=== PATIENT | female | born 1960 | race Two or more races ===

== ENCOUNTER 2016-04-23 08:29 | Emergency (ER) | payer OTHER ==
[2016-04-23 08:35] VITALS: BP 153/72; PULSE 68; TEMP 97.6; BMI 34.2
[2016-04-23] MEDS ORDERED: KETOROLAC TROMETHAMINE 60 MG/2 ML VIAL IM ONE (09:21)
[2016-04-23] MEDS ORDERED: MAG HYDROX/AL HYDROX/SIMETH 355 ML ORAL.SUSP PO ONE (09:21)
[2016-04-23] MEDS ORDERED: KETOROLAC TROMETHAMINE 60 MG/2 ML VIAL ONE (09:22)
[2016-04-23] MEDS ORDERED: MAG HYDROX/AL HYDROX/SIMETH 30 ML UNIT-DOSE CUP ONE (09:24)
--- NOTE | 2016-04-23 09:27 | PDOC ---
History of Present Illness - General Chief Complaint: Back Pain Stated Complaint: PAIN/ BACK, Time Seen by Provider: 04/23/16 09:01 History Source: Patient Exam Limitations: No Limitations - History of Present Illness Initial Comments: 04/23/16 09:24 CHIEF COMPLAINT:: Upper back pain, and burning sensation mid upper stomach radiates up HISTORY OF PRESENT ILLNESS:-Pt. is a 55 y/o year-old female with a history of hypertension and hyperlipidemia here today complaining of bilateral muscular pain thoracic paraspinal muscles for a few days that is worse with movement currently as a 6 out of 10 aching in nature. Patient also reports that she has a burning sensation mid epigastric area up towards towards her throat with a lot of belching. Patient reports that she does eat and lie down. Denies any nausea or vomiting. 04/23/16 11:58 Timing/Duration: intermittent Severity: moderate Associated Symptoms: reports: other (thoracic back pain b/l, gastric reflux,) Past History - Past Medical History Allergies/Adverse Reactions: Allergies Allergy/AdvReac Type Severity Reaction Status Date / Time Penicillins Allergy Intermediate Hives Verified 04/23/16 08:31 Home Medications: Ambulatory Orders Lisinopril 10 mg PO DAILY 09/29/15 Simvastatin 20 mg PO HS 09/29/15 Omeprazole 20 mg PO DAILY #15 capsule.dr GOVEA 1 04/23/16 HTN: Yes Hypercholesterolemia: Yes Suicide Attempt (Hx): No - Immunization History Td Vaccination: Yes TDAP Vaccination: Yes Immunization Up to Date: Yes - Psycho/Social/Smoking Cessation Hx Anxiety: No Suicidal Ideation: No Smoking Status: No Smoking History: Never smoked Years of Tobacco Use: 0 Number of Cigarettes Smoked Daily: 0 Cigars Per Day: 0 Drug/Substance Use Hx: No Substance Use Type: None Review of Systems - Review of Systems Able to Perform ROS?: Yes Constitutional: No: Symptoms Reported HEENTM: No: Symptoms Reported Respiratory: No: Symptoms reported Cardiac (ROS): No: Symptoms Reported ABD/GI: Yes: Other (epigastric burning radiating to throat) : No: Symptoms Reported Musculoskeletal: Yes: Muscle Pain (thoracic b/l pain) Integumentary: No: Symptoms Reported Neurological: No: Symptoms reported *Physical Exam - Vital Signs Last Vital Signs Temp Pulse Resp BP Pulse Ox 97.6 F 68 19 153/72 99 04/23/16 08:31 02/24/17 08:31 04/23/16 08:31 04/23/16 08:31 04/23/16 08:31 - Physical Exam General Appearance: Yes: Appropriately Dressed HEENT: positive: Normal ENT Inspection Neck: negative: Lymphadenopathy (R), Lymphadenopathy (L) Respiratory/Chest: positive: Lungs Clear, Normal Breath Sounds. negative: Chest Tender, Respiratory Distress Cardiovascular: positive: Regular Rhythm, Regular Rate, S1, S2 Musculoskeletal: positive: Normal Inspection, Other (b/l paraspinal muscle pain thoracic). negative: CVA Tenderness, CVA Tenderness (R), CVA Tenderness (L), Vertebral Tenderness Extremity: positive: Normal Capillary Refill, Normal Inspection, Normal Range of Motion Integumentary: positive: Normal Color Neurologic: positive: Alert, Normal Response, Motor Strength 5/5 (upper extremities), Other (negative SLR b/l ). negative: Respond to painful stimul, Responsive, Numbness, Sensory Deficit Deep Tendon Reflexes: Knee (L): 3+, Knee (R): 3+ Medical Decision Making - Medical Decision Making 04/23/16 09:27 Pt. is a 55 y/o year-old female with a history of hypertension and hyperlipidemia here today complaining of bilateral muscular pain thoracic paraspinal muscles for a few days that is worse with movement currently as a 6 out of 10 aching in nature. Patient also reports that she has a burning sensation mid epigastric area up towards towards her throat with a lot of belching. Patient reports that she does eat and lie down. Denies any nausea or vomiting. Gastric reflux gastric reflux Thoracic paraspinal muscle tenderness bilaterally Plan: Toradol 60 mg IM now Maalox 30 mL now Will discharge on omeprazole 20 mg daily Will have patient follow up with her primary care provider within the next few days Patient instructed not to eat and lie down Patient instructed not to eat fried foods Patient instructed to decrease amount of carbohydrates in her diet patient is willing to see a news camera person here 04/23/16 12:05 *DC/Admit/Observation/Transfer Diagnosis at time of Disposition: Gastric reflux Bilateral thoracic back pain Qualifiers: Chronicity: acute Qualified Code(s): M54.6 - Pain in thoracic spine - Discharge Dispostion Disposition: HOME Condition at time of disposition: Stable - Prescriptions Prescriptions: Omeprazole 20 mg PO DAILY #15 capsule.dr GOVEA 1 - Referrals Referrals: Yusuf Abel MD [Primary Care Provider] - - Patient Instructions Additional Instructions: Instructed not to eat and lie down for at least 2 hours and to avoid frying foods, decrease her amount of rice, posterior and potatoes Follow up with news camera person here at [phone] call for appointment followup with your primary care provider for further evaluation within the next few days Return to emergency room if symptoms worsen Acetaminophen as needed as directed by c software developer for pain avoid Any heavy lifting or exercise Patient voiced understanding of discharge instructions and all questions were answered
== END 2016-04-23 09:45 | disposition home or self-care (01) ==
LOC: JERFT 08:29
PROC: 3E0233Z Introduction of Anti-inflammatory into Muscle, Percutaneous Approach (ICD-10-PCS; principal; 2016-04-23)
DX: K21.9 Gastro-esophageal reflux disease without esophagitis (principal); I10 Essential (primary) hypertension; E78.00 Pure hypercholesterolemia, unspecified; E78.5 Hyperlipidemia, unspecified
CPT/HCPCS: 99281-25

== ENCOUNTER 2017-02-14 13:05 | Emergency (ER) | payer OTHER ==
[2017-02-14 13:18] VITALS: BP 154/81; PULSE 70; TEMP 98.4; BMI 31.8
--- NOTE | 2017-02-14 13:48 | PDOC ---
History of Present Illness - General Chief Complaint: Cold Symptoms Stated Complaint: COUGH Time Seen by Provider: 02/14/17 13:19 History Source: Patient - History of Present Illness Timing/Duration: reports: week Associated Symptoms: reports: chest pain/soreness, cough. denies: fever/chills , shortness of breath Past History - Past Medical History Allergies/Adverse Reactions: Allergies Allergy/AdvReac Type Severity Reaction Status Date / Time Penicillins Allergy Intermediate Hives Verified 02/14/17 13:14 Home Medications: Ambulatory Orders Lisinopril 10 mg PO ASDIR 02/14/17 Omeprazole 40 mg PO ASDIR 02/14/17 Simvastatin 20 mg PO ASDIR 02/14/17 COPD: No HTN: Yes Hypercholesterolemia: Yes - Immunization History Td Vaccination: Yes TDAP Vaccination: Yes Immunization Up to Date: Yes - Suicide/Smoking/Psychosocial Hx Smoking Status: No Smoking History: Never smoked Years of Tobacco Use: 0 Number of Cigarettes Smoked Daily: 0 Cigars Per Day: 0 Information on smoking cessation initiated: No Hx Alcohol Use: No Drug/Substance Use Hx: No Substance Use Type: None Review of Systems - Review of Systems Constitutional: No: Chills, Fever Respiratory: Yes: Cough. No: Shortness of Breath, Wheezing Cardiac (ROS): No: Chest Pain *Physical Exam - Vital Signs Last Vital Signs Temp Pulse Resp BP Pulse Ox 98.4 F 70 18 154/81 100 02/14/17 13:16 02/14/17 13:16 02/14/17 13:16 02/14/17 13:16 02/14/17 13:16 - Physical Exam General Appearance: Yes: Appropriately Dressed. No: Apparent Distress HEENT: positive: Normal ENT Inspection, Normal Voice. negative: Scleral Icterus (R), Scleral Icterus (L) Neck: positive: Supple Respiratory/Chest: positive: Lungs Clear, Normal Breath Sounds. negative: Respiratory Distress Cardiovascular: positive: Regular Rate, S1, S2 Integumentary: positive: Dry, Warm Neurologic: positive: Fully Oriented, Alert, Normal Mood/Affect ED Treatment Course - RADIOLOGY Radiology Studies Ordered: Category Date Time Status CHEST PA & LAT [RAD] Stat Radiology 02/14/17 13:46 Ordered Medical Decision Making - Medical Decision Making 02/14/17 13:46 56-year-old female, denies any past medical history here with cough. Patient states cough started a week ago, was initially dry but now productive with clear phlegm and now having diffuse chest and back pain only when coughing, otherwise no chest pain and denies shortness of breath, hemoptysis, fever or chills. No tobacco history. Patient well-appearing and stable in ED with unremarkable exam. Most likely viral URI. Will check chest x-ray 02/14/17 14:03 CXR negative. Dc w/ supportive tx and pmd f/u as needed *DC/Admit/Observation/Transfer Diagnosis at time of Disposition: Cough - Discharge Dispostion Disposition: HOME Condition at time of disposition: Good - Referrals Referrals: Yusuf Abel MD [Primary Care Provider] - - Patient Instructions Printed Discharge Instructions: DI for Viral Upper Respiratory Infection -- Adult Additional Instructions: Your cxr did not show any infection Take Robitussin as needed for cough and Tylenol as needed for pain. Follow-up with your doctor - Post Discharge Activity
== END 2017-02-14 14:22 | disposition home or self-care (01) ==
LOC: JERFT 13:05
DX: J06.9 Acute upper respiratory infection, unspecified (principal); B97.89 Other viral agents as the cause of diseases classified elsewhere; I10 Essential (primary) hypertension; E78.00 Pure hypercholesterolemia, unspecified
CPT/HCPCS: 71020-TC; 99281-25

== ENCOUNTER 2018-04-22 10:13 | Emergency (ER) | payer OTHER ==
[2018-04-22 10:18] VITALS: BMI 33.6
[2018-04-22] MEDS ORDERED: IBUPROFEN 600 MG TABLET (FP) PO ONE ×2 (12:15→12:33)
--- NOTE | 2018-04-22 12:53 | PDOC ---
History of Present Illness - General Chief Complaint: Respiratory Stated Complaint: COLD SYMPTOMS Time Seen by Provider: 04/22/18 11:01 History Source: Patient Exam Limitations: No Limitations - History of Present Illness Initial Comments: 04/22/18 12:51 57-year-old female presents to ED with complaints of nasal congestion, frontal headache, sore throat and pain to her upper back with coughing and deep breathing. Patient denies fever, chills, chest pain, stomach discomfort, recent travel, recent illness or recent change in medications. Patient does have history of hypertension and dyslipidemia. Timing/Duration: intermittent Severity: mild Associated Symptoms: reports: cough, headaches. denies: shortness of breath Past History - Travel Traveled outside of the country in the last 30 days: No Close contact w/someone who was outside of country & ill: No - Past Medical History Allergies/Adverse Reactions: Allergies Allergy/AdvReac Type Severity Reaction Status Date / Time Penicillins Allergy Intermediate Hives Verified 04/22/18 10:18 Home Medications: Ambulatory Orders Lisinopril 10 mg PO ASDIR 02/14/17 Omeprazole 40 mg PO ASDIR 02/14/17 Simvastatin 20 mg PO ASDIR 02/14/17 COPD: No HTN: Yes Hypercholesterolemia: Yes - Immunization History Td Vaccination: Yes TDAP Vaccination: Yes Immunization Up to Date: Yes - Suicide/Smoking/Psychosocial Hx Smoking Status: No Smoking History: Never smoked Years of Tobacco Use: 0 Number of Cigarettes Smoked Daily: 0 Cigars Per Day: 0 Hx Alcohol Use: No Drug/Substance Use Hx: No Substance Use Type: None Patient Lives Alone: No Lives with/in: spouse/SO Review of Systems - Review of Systems Able to Perform ROS?: No Is the patient limited Amharic proficient: No Constitutional: No: Chills HEENTM: Yes: Nose Congestion, Throat Pain Respiratory: Yes: Cough Cardiac (ROS): No: Chest Pain, Lightheadedness, Palpitations ABD/GI: No: Symptoms Reported Musculoskeletal: Yes: Back Pain (upper mid) Integumentary: No: Symptoms Reported Neurological: Yes: Headache (mild front throbbing pressure) Hematologic/Lymphatic: No: Symptoms Reported *Physical Exam - Vital Signs Last Vital Signs Temp Pulse Resp BP Pulse Ox 98.4 F 62 18 132/63 100 04/22/18 10:16 04/22/18 10:16 04/22/18 10:16 04/22/18 10:16 04/22/18 10:16 - Physical Exam General Appearance: Yes: Nourished, Appropriately Dressed. No: Apparent Distress HEENT: positive: EOMI, ANDREI, TMs Normal, Pharynx Normal, Sinus Tenderness ( frontal and maxillary). negative: Pale Conjunctivae Neck: negative: Supple, Lymphadenopathy (R), Lymphadenopathy (L) Respiratory/Chest: positive: Lungs Clear, Normal Breath Sounds. negative: Respiratory Distress, Accessory Muscle Use Cardiovascular: positive: Regular Rhythm, Regular Rate. negative: Murmur Gastrointestinal/Abdominal: positive: Soft. negative: Tenderness Extremity: positive: Normal Inspection Integumentary: positive: Normal Color, Warm, Moist Neurologic: positive: Motor Strength 5/5 (ambulatory) Moderate Sedation - Procedure Monitoring Vital Signs: Procedure Monitoring Vital Signs Temperature 98.4 F 04/22/18 10:16 Pulse Rate 62 04/22/18 10:16 Respiratory Rate 18 04/22/18 10:16 Blood Pressure 132/63 04/22/18 10:16 O2 Sat by Pulse Oximetry (%) 100 04/22/18 10:16 Heart Score/ECG Review - ECG Intrepretation Rhythm: Regular Rhythm (nsb w/ 1st degree av block rate 47) ED Treatment Course - RADIOLOGY Radiology Studies Ordered: Category Date Time Status CHEST PA & LAT [RAD] Stat Radiology 04/22/18 12:16 Ordered Medical Decision Making - Medical Decision Making 04/22/18 13:00 Chief complaint. Nasal congestion frontal headache sore throat and upper back pain worsened with coughing and deep breathing. Exam: Frontal maxillary tenderness otherwise normal physical exam. Plan: Patient ordered for Motrin,chest x-ray and EKG 04/22/18 13:11 Chest x-ray shows no acute pathology. Patient states feeling better after receiving Motrin. Patient be discharged home with prescription for Motrin and Claritin *DC/Admit/Observation/Transfer Diagnosis at time of Disposition: Nasal congestion, Musculoskeletal pain - Discharge Dispostion Disposition: HOME Condition at time of disposition: Improved - Referrals Referrals: Yusuf Abel MD [Primary Care Provider] - - Patient Instructions Printed Discharge Instructions: DI for Nasal Congestion, DI for Musculoskeletal Pain Additional Instructions: At this time take Motrin every 8 hours as prescribed along with the Claritin I prescribed today. Drink plenty of fluids rest, and follow-up with your doctor as needed. Otherwise return to ED if symptoms worsen. - Post Discharge Activity Forms/Work/School Notes: Back to Work
[2018-04-22 13:22] VITALS: BP 160/104; PULSE 98; TEMP 97.1
--- NOTE | 2018-04-22 21:59 | EKG ---
Test Reason : Blood Pressure : / mmHG Vent. Rate : 047 BPM Atrial Rate : 047 BPM P-R Int : 232 ms QRS Dur : 088 ms QT Int : 442 ms P-R-T Axes : 062 044 045 degrees QTc Int : 391 ms SINUS BRADYCARDIA WITH 1ST DEGREE A-V BLOCK OTHERWISE NORMAL ECG NO PREVIOUS ECGS AVAILABLE Confirmed by BENEDICTO GIRON, JENNIE ([id number]) on 04/22/2018 9:58:33 PM Referred By: Confirmed By:JENNIE DIANE MD
== END 2018-04-22 13:22 | disposition home or self-care (01) ==
LOC: JER 10:13 → JERFT 10:13 → JER 13:22
DX: M54.6 Pain in thoracic spine (principal); R09.81 Nasal congestion; I10 Essential (primary) hypertension; E78.00 Pure hypercholesterolemia, unspecified
CPT/HCPCS: 71046-TC-FY; 93005; 93010; 99281-25

== ENCOUNTER 2022-07-23 09:37 | Emergency (ER) | payer OTHER ==
[2022-07-23 10:08] VITALS: BP 146/83; PULSE 82; RESP 17; TEMP 98.5; BMI 28.2
[2022-07-23] MEDS ORDERED: DIPHTH,PERTUSS(ACELL),TET 0.5 ML DISP.SYRIN IM ONE ×2 (11:02→11:17)
== END 2022-07-23 12:19 | disposition home or self-care (01) ==
LOC: JERFT 09:37
PROC: 3E0234Z Introduction of Serum, Toxoid and Vaccine into Muscle, Percutaneous Approach (ICD-10-PCS; principal; 2022-07-23)
DX: S09.93XA Unspecified injury of face, initial encounter (principal); S60.221A Contusion of right hand, initial encounter; S61.411A Laceration without foreign body of right hand, initial encounter; M79.641 Pain in right hand; R51.9 Headache, unspecified; R53.83 Other fatigue; W01.0XXA Fall on same level from slipping, tripping and stumbling without subsequent striking against object, initial encounter; Y93.01 Activity, walking, marching and hiking; Y92.410 Unspecified street and highway as the place of occurrence of the external cause
CPT/HCPCS: 70450-TC; 73130-TC-RT-FY; 90471; 90715; 99284-25

== ENCOUNTER 2023-09-07 05:03 | Emergency (ER) | payer OTHER ==
[2023-09-07 05:12] VITALS: BP 114/73; PULSE 64; RESP 18; TEMP 98.2; BMI 26.5
[2023-09-07] MEDS ORDERED: FLUCONAZOLE 150 MG TABLET PO ONE (06:47)
[2023-09-07] MEDS ORDERED: metroNIDAZOLE 250 MG TABLET ONE (06:47)
[2023-09-07] MEDS: FLUCONAZOLE 50 MG TABLET PO ONE (06:50)
[2023-09-07] MEDS: metroNIDAZOLE 250 MG TABLET PO ONE (06:50)
[2023-09-07 07:05] LABS: PH,URINE 5.5 (5.0-8.0); URINE APPEARANCE CLEAR; URINE BILIRUBIN NEGATIVE (NEGATIVE); URINE COLOR YELLOW; URINE GLUCOSE (UA) 3+ (NEGATIVE); URINE KETONE NEGATIVE (NEGATIVE); URINE LEUK ESTERASE NEGATIVE (NEGATIVE); URINE NITRITE NEGATIVE (NEGATIVE); URINE PROTEIN NEGATIVE (NEGATIVE); URINE UROBILINOGEN 0.2 mg/dL (0.2-1.0)
== END 2023-09-07 07:18 | disposition home or self-care (01) ==
LOC: JER 05:03
DX: N76.0 Acute vaginitis (principal); L29.2 Pruritus vulvae; R30.0 Dysuria
CPT/HCPCS: 36415; 81003; 87070; 87077; 87086; 87205; 87491; 87591; 87661; 99283-25

== ENCOUNTER 2023-12-23 12:38 | Emergency (ER) | payer OTHER ==
[2023-12-23 12:49] VITALS: BP 161/87; PULSE 61; RESP 18; TEMP 97.7; BMI 30.9
[2023-12-23] MEDS ORDERED: diphenhydrAMINE HCL 25 MG CAPSULE (FP) PO ONE (14:04)
[2023-12-23] MEDS: diphenhydrAMINE HCL 25 MG CAPSULE (FP) PO ONE (14:07)
[2023-12-23 14:39] LABS: BASO % 0.4 % (0-2.0); HEMATOCRIT 41.1 % (32.4-45.2); LYMPH % 40.6 % (8-40); MCH 28.6 pg (25.7-33.7); MEAN CELL VOLUME 84.2 fl (80-96); MEAN PLT VOLUME 8.3 fl (7.5-11.1); MONO % 3.4 % (3.8-10.2); NEUT % 54.6 % (42.8-82.8); PLATELET COUNT 381 10^3/uL (134-434); RBC 4.89 M/mm3 (3.60-5.2); RDW 12.2 % (11.6-15.6); WHITE BLOOD COUNT 6.6 K/mm3 (4.0-10.0)
[2023-12-23 15:08] LABS: CHLORIDE 98 mmol/L (98-107); POTASSIUM 4.4 mmol/L (3.5-5.1); SODIUM 131 mmol/L (136-145)
[2023-12-23 15:11] LABS: CALCIUM 9.6 mg/dL (8.5-10.1)
[2023-12-23 15:12] LABS: ANION GAP 8 mmol/L (4-13); BLOOD UREA NITROGEN 15.1 mg/dL (7-18); CO2 26 mmol/L (21-32); GLUCOSE,RANDOM 426 mg/dL (74-106)
[2023-12-23 15:15] LABS: CREATININE 0.9 mg/dL (0.55-1.3); SGOT/AST 20 U/L (15-37); SGPT/ALT 39 U/L (13-61)
[2023-12-23 15:17] LABS: BILIRUBIN,TOTAL 0.4 mg/dL (0.2-1); TOT PROT 7.4 g/dl (6.4-8.2)
[2023-12-23 15:18] LABS: ALK PHOS 114 U/L (45-117)
[2023-12-23 18:48] LABS: HIV INTERPRETATION NEGATIVE (NEGATIVE)
== END 2023-12-23 15:01 | disposition home or self-care (01) ==
LOC: JERFT 12:38
DX: R21 Rash and other nonspecific skin eruption (principal); L29.9 Pruritus, unspecified
CPT/HCPCS: 36415; 80053; 85025; 86803; 87389; 99283-25